=== PATIENT | female | born 1965 | race African-American/Black ===

== ENCOUNTER 2020-11-26 10:24 | Emergency (ER) | payer MEDICARE, OTHER ==
[~2020-11-26] VITALS: Ht 149.9 cm; Wt 81.6 kg
[~2020-11-26 10:24] MED LIST: LOSA-39; TRAM50TA2
[2020-11-26] MEDS ORDERED: BAMLANIVIMAB 700MG/200ML 200 ML IV ONE (12:30)
[2020-11-26 14:35] VITALS: BP 144/91
== END 2020-11-26 14:35 | disposition home or self-care (01) ==
LOC: ER 10:24
DX: U07.1 COVID-19 (principal); I10 Essential (primary) hypertension; E78.5 Hyperlipidemia, unspecified; J45.909 Unspecified asthma, uncomplicated; Z90.710 Acquired absence of both cervix and uterus
CPT/HCPCS: 36415; 71045; 87426; 99285; M0239; Q0239

== ENCOUNTER 2021-08-25 08:55 | Emergency (ER) | payer MEDICARE, OTHER ==
[~2021-08-25] VITALS: Ht 149.9 cm; Wt 73.9 kg
[2021-08-25 08:55] VITALS: BP 137/73
== END 2021-08-25 13:04 | disposition home or self-care (01) ==
LOC: ER 08:55
DX: J45.909 Unspecified asthma, uncomplicated (principal); I10 Essential (primary) hypertension; E78.5 Hyperlipidemia, unspecified; Z90.710 Acquired absence of both cervix and uterus; Z79.899 Other long term (current) drug therapy; Z88.8 Allergy status to other drugs, medicaments and biological substances; Z91.040 Latex allergy status; Z20.822 Contact with and (suspected) exposure to COVID-19
CPT/HCPCS: 36415; 71046; 87426